=== PATIENT | female | born 1970 | race Caucasian/White ===

== ENCOUNTER 2019-12-16 10:21 | Emergency (ER) | payer MEDICAID ==
[~2019-12-16] VITALS: Ht 170.2 cm; Wt 95.5 kg
[2019-12-16] MEDS ORDERED: PRED20TA PO (12:12)
[2019-12-16] MEDS ORDERED: diphenhydrAMINE 25mg capsule PO ONE (12:15)
[2019-12-16 12:23] VITALS: BP 108/73
== END 2019-12-16 12:26 | disposition home or self-care (01) ==
LOC: ER 10:22
DX: T80.62XA Other serum reaction due to vaccination, initial encounter (principal); R21 Rash and other nonspecific skin eruption; R00.0 Tachycardia, unspecified; Z79.899 Other long term (current) drug therapy; Y69 Unspecified misadventure during surgical and medical care; Y92.89 Other specified places as the place of occurrence of the external cause
CPT/HCPCS: 99283; Q0163

== ENCOUNTER 2023-04-07 07:22 | Day surgery (SDC) | payer MEDICAID ==
[~2023-04-07] VITALS: Ht 172.7 cm; Wt 90.5 kg
[2023-04-07 07:30] VITALS: BP 188/91
[2023-04-07] MEDS ORDERED: fentaNYL/PF 50MCG/1 ML 2ML syringe ONE (07:52)
[2023-04-07] MEDS ORDERED: MIDAZolam 1 MG/ML 5ML VIAL ONE (07:52)
[2023-04-07] MEDS ORDERED: LIDOcaine Viscous 15ml cup ONE (07:52)
[2023-04-07] MEDS ORDERED: LISI20TA28 PO (08:15)
[2023-04-07] MEDS ORDERED: PIOG15TA8 PO (08:16)
[2023-04-07] MEDS ORDERED: CYCL-1 PO (08:16)
[2023-04-07] MEDS ORDERED: NAPR500T6 PO (08:17)
[2023-04-07] MEDS ORDERED: RED600CA2 PO (08:19)
[2023-04-07] MEDS ORDERED: LACT1CAP75 PO (08:20)
[2023-04-07] MEDS ORDERED: OMEG-15 PO (08:20)
[2023-04-07] MEDS ORDERED: VITA-288 PO (08:22)
[2023-04-07] MEDS ORDERED: diphenhydrAMINE 50 mg/ml inj ONE (10:18)
[2023-04-07 10:45] VITALS: BP 131/80
[2023-04-07 10:55] VITALS: BP 141/81
[2023-04-07 11:05] VITALS: BP 157/76
== END 2023-04-07 11:20 | disposition home or self-care (01) ==
LOC: GI LAB 07:22
PROVIDERS: ATTEND Internal Medicine Gastroenterology
DX: Z12.11 Encounter for screening for malignant neoplasm of colon (principal); R10.13 Epigastric pain; K63.89 Other specified diseases of intestine; K29.80 Duodenitis without bleeding; K29.40 Chronic atrophic gastritis without bleeding; B96.81 Helicobacter pylori [H. pylori] as the cause of diseases classified elsewhere; K74.60 Unspecified cirrhosis of liver; K76.0 Fatty (change of) liver, not elsewhere classified; E11.9 Type 2 diabetes mellitus without complications; I10 Essential (primary) hypertension; M48.02 Spinal stenosis, cervical region; F17.210 Nicotine dependence, cigarettes, uncomplicated; Z79.899 Other long term (current) drug therapy; Z90.49 Acquired absence of other specified parts of digestive tract; Z98.890 Other specified postprocedural states; Z90.710 Acquired absence of both cervix and uterus
CPT/HCPCS: 43239; 45378; 99152; 99153; J1200; J2250; J3010; J7030; Z7512; A4620

== ENCOUNTER 2023-04-15 10:52 | Emergency (ER) | payer MEDICAID ==
[~2023-04-15] VITALS: Ht 172.7 cm; Wt 90.5 kg
[~2023-04-15 10:52] MED LIST: CYCL-1 PO; LACT1CAP75 PO; LISI20TA28 PO; NAPR500T6 PO; OMEG-15 PO; PIOG15TA8 PO; RED600CA2 PO; VITA-288 PO
[2023-04-15] MEDS ORDERED: normal saline 1000ML IV soln IV ONE (11:30)
[2023-04-15] MEDS ORDERED: ondansetron/PF 4mg/2ml inj IV ONE (11:30)
[2023-04-15] MEDS ORDERED: morphine 4 MG/ML inj SYRINge IV PRN (11:30)
[2023-04-15 11:45] LABS: BASOPHILS # (AUTO) 0.1 X10'3 (0-0.2); BASOPHILS % (AUTO) 0.8 % (0-1); EOSINOPHILS # (AUTO) 0.1 X10'3 (0-0.9); EOSINOPHILS % (AUTO) 0.6 % (0-6); HEMOGLOBIN 16.2 g/dl (12.0-16.0); LYMPHOCYTES % (AUTO) 17.9 % (21-51); MEAN CORPUSCULAR HEMOGLOBIN 29.2 PG (27.0-31.0); MEAN CORPUSCULAR HGB CONC 33.1 g/dL (33.0-36.5); MEAN CORPUSCULAR VOLUME 88.2 FL (78-98); MEAN PLATELET VOLUME 8.7 FL (7.4-10.4); MONOCYTES # (AUTO) 1.4 X10'3 (0-0.9); MONOCYTES % (AUTO) 8.4 % (2-12); NEUTROPHILS # (AUTO) 11.9 X10'3 (1.8-7.7); NEUTROPHILS % (AUTO) 72.3 % (42-75); PLATELET COUNT 244 X10'3 (140-440); RED BLOOD COUNT 5.55 X10'6 (4.20-5.60); WHITE BLOOD COUNT 16.5 X10'3 (4.5-11.0)
[2023-04-15 12:01] LABS: ALANINE AMINOTRANSFERASE 90 U/L (12-78); ALBUMIN 3.8 G/DL (3.4-5.0); ALKALINE PHOSPHATASE 102 IU/L (46-116); ANION GAP 12 (8-16); ASPARTATE AMINO TRANSFERASE 366 U/L (10-37); BILIRUBIN,TOTAL 0.7 MG/DL (0.1-1.0); BLOOD UREA NITROGEN 15 MG/DL (7-18); BUN/CREATININE RATIO 14.4 (10.0-20.0); CALCIUM 9.8 MG/DL (8.5-10.1); CHLORIDE 102 MMOL/L (99-107); CREATININE 1.04 MG/DL (0.40-0.90); GLUCOSE 160 MG/DL (70-104); LIPASE 85 U/L (73-393); POTASSIUM 4.3 MMOL/L (3.5-5.1); SODIUM 140 MMOL/L (135-145); TOTAL CARBON DIOXIDE 26.5 MMOL/L (24-32); TOTAL PROTEIN 7.6 G/DL (6.4-8.2); eGFR 55 ML/MIN
[2023-04-15] MEDS ORDERED: piperacillin/tazo 3.375gm/50ml 50 ML IV ONE (12:30)
[2023-04-15] MEDS ORDERED: ketorolac trometh. 30mg/ml inj. IV ONE (14:05)
[2023-04-15 14:15] LABS: URINE HCG NEGATIVE (NEG)
[2023-04-15 14:18] VITALS: BP 131/82
[2023-04-15 14:20] LABS: CLARITY,URINE CLEAR (Clear); GLUCOSE, URINE NEGATIVE (Neg); KETONES,URINE NEGATIVE (Neg); LEUKOCYTE ESTERASE ,URINE SMALL (Neg); NITRITES, URINE NEGATIVE (Neg); OCCULT BLOOD,URINE NEGATIVE (Neg); PROTEIN,URINE NEGATIVE (Neg); UROBILINOGEN,URINE 0.2 E.U/dL (0.2-1.0)
[2023-04-15 14:21] LABS: COLOR,URINE STRAW (Yellow); UA COLLECTION TYPE CLN CATCH MIDSTREAM
[2023-04-15 14:30] LABS: BACTERIA,URINE FEW /HPF (Neg); MUCUS STRANDS FEW /LPF (Neg); RBC,URINE NONE SEEN /HPF (0-2); SQUAMOUS EPITHELIAL CELL,UR FEW /LPF (FEW)
[2023-04-15] MEDS ORDERED: oxyCODONE/APAP 5-325mg tablet PO ONE (15:05)
[2023-04-15] MEDS ORDERED: OXYC-145 PO (15:06)
[2023-04-15] MEDS ORDERED: CEPH250T PO (15:06)
== END 2023-04-15 15:26 | disposition home or self-care (01) ==
LOC: ER 10:52
DX: N10 Acute pyelonephritis (principal); I10 Essential (primary) hypertension; E11.9 Type 2 diabetes mellitus without complications; F17.200 Nicotine dependence, unspecified, uncomplicated; Z79.899 Other long term (current) drug therapy
CPT/HCPCS: 36415; 74176; 80053; 81001; 81025; 83605; 83690; 84145; 85025; 87088; 96365; 96366; 96375; 99285; J1885; J2270; J2405; J2543; J7030

== ENCOUNTER 2023-08-18 07:42 | Day surgery (SDC) | payer MEDICAID ==
[2023-08-18] VITALS (12 sets, daily range): BP systolic 120–154; BP diastolic 55–84; PULSE 72–89; RESP 12–15; TEMP 98; O2SAT 92–97
[~2023-08-18] VITALS: Ht 172.7 cm; Wt 93.3 kg
[~2023-08-18 07:42] MED LIST changes: +OXYC-145 PO
[2023-08-18] MEDS ORDERED: LORazepam 0.5 MG tablet PO PRN (08:00)
[2023-08-18] MEDS ORDERED: diphenhydrAMINE 25mg capsule PO PRN (08:00)
[2023-08-18] MEDS ORDERED: insulin Lispro (HumaLOG) vial - multi-dose SQ SCH (08:00)
[2023-08-18] MEDS ORDERED: normal saline 1,000 ML IV SCH (08:00)
[2023-08-18] MEDS ORDERED: MESSAGE TO PHARMACY PO ONE (08:00)
[2023-08-18] MEDS ORDERED: nitroGLYCERIN 0.4mg SUBLingual tab SL PRN ×2 (08:00→10:30)
[2023-08-18] MEDS ORDERED: MULT-1085 PO (08:20)
[2023-08-18] MEDS ORDERED: [UNRECOGNIZED DRUG - OTHER] PO (08:20)
[2023-08-18] MEDS ORDERED: fentaNYL/PF 50MCG/1 ML 2ML syringe ONE (08:30)
[2023-08-18] MEDS ORDERED: iohexol 350 MG/ML 50ML vial IV ONE (08:30)
[2023-08-18] MEDS ORDERED: LIDOcaine 1% (10mg/ml)w/preservative inj. 20ml MDV ONE (08:30)
[2023-08-18] MEDS ORDERED: heparin 1,000unit/ml 10ml vial 0 ML ONE (08:30)
[2023-08-18] MEDS ORDERED: iohexol 350MG/ML 100ml bottle IV ONE (08:30)
[2023-08-18] MEDS ORDERED: midazolam 1 mg/ML 2ml injection ONE (08:30)
[2023-08-18 08:38] LABS: BASOPHILS # (AUTO) 0.1 X10'3 (0-0.2); BASOPHILS % (AUTO) 1.1 % (0-1); EOSINOPHILS # (AUTO) 0.3 X10'3 (0-0.9); EOSINOPHILS % (AUTO) 2.5 % (0-6); HEMOGLOBIN 14.9 g/dl (12.0-16.0); LYMPHOCYTES # (AUTO) 2.7 X10'3 (1.1-4.8); LYMPHOCYTES % (AUTO) 25.1 % (21-51); MEAN CORPUSCULAR HEMOGLOBIN 29.1 PG (27.0-31.0); MEAN CORPUSCULAR HGB CONC 33.1 g/dL (33.0-36.5); MEAN CORPUSCULAR VOLUME 87.9 FL (78-98); MONOCYTES # (AUTO) 0.6 X10'3 (0-0.9); MONOCYTES % (AUTO) 5.7 % (2-12); NEUTROPHILS % (AUTO) 65.6 % (42-75); PLATELET COUNT 220 X10'3 (140-440); RED BLOOD COUNT 5.13 X10'6 (4.20-5.60); RED CELL DISTRIBUTION WIDTH 14.8 % (11.5-14.5); WHITE BLOOD COUNT 10.6 X10'3 (4.5-11.0)
[2023-08-18] MEDS ORDERED: GABA300C PO (08:38)
[2023-08-18 08:53] LABS: ALBUMIN 3.4 G/DL (3.4-5.0); ANION GAP 11 (8-16); BLOOD UREA NITROGEN 17 MG/DL (7-18); BUN/CREATININE RATIO 19.1 (10.0-20.0); CALCIUM 9.1 MG/DL (8.5-10.1); CHLORIDE 105 MMOL/L (99-107); CREATININE 0.89 MG/DL (0.40-0.90); GLUCOSE 155 MG/DL (70-104); SODIUM 141 MMOL/L (135-145); TOTAL CARBON DIOXIDE 25.4 MMOL/L (24-32); eCRCL 73 ML/MIN; eGFR 66 ML/MIN
[2023-08-18] MEDS ORDERED: normal saline 1000ml 1,000 ML IV SCH (10:30)
[2023-08-18] MEDS ORDERED: OXAZEpam 15mg capsule PO PRN (10:30)
[2023-08-18] MEDS ORDERED: HYDROcodone/acetaminophen 10/325mg tab PO PRN (10:30)
[2023-08-18] MEDS ORDERED: HYDROcodone/acetaminophen 5mg/325mg tablet PO PRN (10:30)
[2023-08-18] MEDS ORDERED: acetaminophen 325mg tablet PO PRN (10:30)
[2023-08-18] MEDS ORDERED: ondansetron/PF 4mg/2ml inj IV PRN (10:30)
[2023-08-18] MEDS ORDERED: proCHLORperazine 10 MG/2 ml inj IV PRN (10:30)
[2023-08-18] MEDS ORDERED: cyclobenzaprine 10mg tablet PO ONE (12:05)
[2023-08-18] MEDS ORDERED: gabapentin 300mg capsule PO SCH (12:05)
--- NOTE | 2023-08-18 15:00 | NUR ---
Patient will no longer lay flat in bed s/p angiogram and insisted on getting up to use the toilet. MD orders - 6 hours bedrest ending at 1630. RN instructed and educated patient on risk for bleeding/hematoma. Right groin site assessed prior to patient getting out of bed. No bleeding/hematoma noted. Will continue to assess.
[2023-08-18] MEDS ORDERED: insulin glargine (Lantus) pen - multi-dose SQ SCH (21:00)
== END 2023-08-18 16:40 | disposition home or self-care (01) ==
LOC: SSTAY O 07:42
PROVIDERS: ATTEND Internal Medicine Cardiovascular Disease
DX: R94.39 Abnormal result of other cardiovascular function study (principal); I25.10 Atherosclerotic heart disease of native coronary artery without angina pectoris; I34.0 Nonrheumatic mitral (valve) insufficiency; E11.9 Type 2 diabetes mellitus without complications; I10 Essential (primary) hypertension; E78.5 Hyperlipidemia, unspecified; M47.812 Spondylosis without myelopathy or radiculopathy, cervical region; M47.817 Spondylosis without myelopathy or radiculopathy, lumbosacral region; Z90.710 Acquired absence of both cervix and uterus; Z90.722 Acquired absence of ovaries, bilateral; Z98.890 Other specified postprocedural states; Z90.49 Acquired absence of other specified parts of digestive tract; Z87.891 Personal history of nicotine dependence
CPT/HCPCS: 36415; 71046; 80048; 82948; 85025; 93458; 99152; J1644; J1815; J2250; J3010; J3490; J7030; Q0163; Q9967; 99153; A6258; C1760